=== PATIENT | male | born 1990 | race Two or more races ===

== ENCOUNTER 2021-11-28 16:08 | Emergency (ER) | payer SELFPAY ==
[~2021-11-28] VITALS: Ht 177.8 cm; Wt 70.0 kg
[2021-11-28 16:12] VITALS: BP 132/76
[2021-11-28] MEDS ORDERED: IBUPROFEN 200 MG TABLET. PO ONE (16:30)
--- NOTE | 2021-11-28 17:32 | PHYS DOC ---
Past Medical History Past Medical History: No Pertinent History Past Surgical History: No Surgical History General Adult EDM: Chief Complaint: HAND PROBLEM HPI: HPI: Patient is a 31-year-old male who presents today with left fourth finger pain. Patient is Mongolian-speaking only so all information obtained during the HPI was done using interpretive services. 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 Patient states the incident happened around 10 AM today. patient is a left hand dominant Review of Systems: Review of Systems: Constitutional: Denies fever or chills. [] Eyes: Denies change in visual acuity. [] HENT: Denies nasal congestion or sore throat. [] Respiratory: Denies cough or shortness of breath. [] Cardiovascular: Denies chest pain or edema. [] GI: Denies abdominal pain, nausea, vomiting, bloody stools or diarrhea. [] : Denies dysuria. [] Musculoskeletal: Left fourth finger pain Integument: Denies rash. [] Neurologic: Denies headache, focal weakness or sensory changes. [] Endocrine: Denies polyuria or polydipsia. [] Lymphatic: Denies swollen glands. [] Psychiatric: Denies depression or anxiety. [] Heart Score: C/O Chest Pain: No Risk Factors: Risk Factors: DM, Current or recent (<one month) smoker, HTN, HLP, family history of CAD, obesity. Risk Scores: Score 0 - 3: 2.5% MACE over next 6 weeks - Discharge Home Score 4 - 6: 20.3% MACE over next 6 weeks - Admit for Clinical Observation Score 7 - 10: 72.7% MACE over next 6 weeks - Early Invasive Strategies Current Medications: Current Medications Medications (Trade) Dose Ordered Sig/Dev Start Time Stop Time Status Last Admin Dose Admin Ibuprofen (Motrin) 600 mg 1X ONCE 11/28/21 16:30 11/28/21 16:39 DC 11/28/21 16:39 600 MG Allergies: Allergies: Allergies Coded Allergies Type Severity Reaction Last Updated Verified No Known Drug Allergies 11/28/21 No Physical Exam: PE: Constitutional: Well developed, well nourished, no acute distress, non-toxic appearance. [] HENT: Normocephalic, atraumatic, bilateral external ears normal, oropharynx moist, no oral exudates, nose normal. [] Eyes: PERRLA, EOMI, conjunctiva normal, no discharge. [] Neck: Normal range of motion, no tenderness, supple, no stridor. [] Cardiovascular:Heart rate regular rhythm, no murmur [] Lungs & Thorax: Bilateral breath sounds clear to auscultation [] Abdomen: Bowel sounds normal, soft, no tenderness, no masses, no pulsatile masses. [] Skin: Warm, dry, no erythema, no rash. [] Back: No tenderness, no CVA tenderness. [] Extremities: Left fourth finger distal and is swollen and painful to touch with ecchymosis noted cap refill is less than 2 seconds sensory is intact patient is able to flex and extend finger it is limited due to pain. No lacerations or abrasions noted Neurologic: Alert and oriented X 3, normal motor function, normal sensory function, no focal deficits noted. [] Psychologic: Affect normal, judgement normal, mood normal. [] EKG: EKG: [] Radiology/Procedures: Radiology/Procedures: REASON: SMASHED IN MIXER AT WORK-4TH FINGER PROCEDURE: FINGER(S) LEFT Study: XR FINGER(S)_LEFT 2+VIEWS_RT Indication: Fourth finger injury. Comparison: None. Findings: Comminuted fracture at the distal aspect of the ring finger distal phalanx to include the tuft. Minimal displacement dorsally by a millimeter. No intra- articular extension. No acute fracture seen elsewhere. No retained radiodense foreign body. Impression: Comminuted fracture with minimal displacement at the distal aspect of the ring finger distal phalanx. Electronically signed by: SANDRA SKINNER MD (11/28/2021 5:35 PM) [facility] DICTATED and SIGNED BY: SANDRA SKINNER MD DATE: 11/28/211733[] Course & Med Decision Making: Course & Med Decision Making Pertinent Labs and Imaging studies reviewed. (See chart for details) [] Tommy Disclaimer: Tommy Disclaimer: This electronic medical record was generated, in whole or in part, using a voice recognition dictation system. Departure Departure Impression: Primary Impression: Fracture of distal phalanx of finger of left hand Disposition: 01 HOME / SELF CARE / HOMELESS Condition: STABLE Referrals: NO PCP (PCP) JAQUAN COOLEY Jr. DO Patient Instructions: Finger Fracture Additional Instructions: Wear finger splint until followed up by orthopedics Follow-up with orthopedic physician in the next [address] Cooley who is listed on the referral section under discharge instructions Ice 20 minutes on 3-4 times daily Tylenol and/or ibuprofen as needed for mild to moderate pain Hydrocodone take 1 tablet every 6 hours as needed for moderate to severe pain Scripts Hydrocodone Bit/Acetaminophen (HYDROCODONE-APAP 5-325 ) 1 Tab Tablet 1 TAB PO PRN Q6HRS PRN for PAIN, #10 TAB 0 Refills Prov: CORTEZ COX HANDLE FINISHER 11/28/21 CORTEZ COX HANDLE FINISHER Nov 28, 2021 17:32
--- NOTE | 2021-11-28 17:38 | RAD ---
Study: XR FINGER(S)_LEFT 2+VIEWS_RT Indication: Fourth finger injury. Comparison: None. Findings: Comminuted fracture at the distal aspect of the ring finger distal phalanx to include the tuft. Minim al displacement dorsally by a millimeter. No intra-articular extension. No acute fracture seen elsewh ere. No retained radiodense foreign body. Impression: Comminuted fracture with minimal displacement at the distal aspect of the ring finger distal phalanx. Electronically signed by: SANDRA SKINNER MD (11/28/2021 5:35 PM) [facility]
[2021-11-28] MEDS ORDERED: HYDR-2761 PO (17:52)
== END 2021-11-28 18:03 | disposition home or self-care (01) ==
LOC: ER 16:08
DX: S62.635A Displaced fracture of distal phalanx of left ring finger, initial encounter for closed fracture (principal); W22.8XXA Striking against or struck by other objects, initial encounter; Y93.39 Activity, other involving climbing, rappelling and jumping off; Y92.89 Other specified places as the place of occurrence of the external cause; Y99.8 Other external cause status
CPT/HCPCS: 73140; 99283